=== PATIENT | female | born 1955 | race Caucasian/White ===

== ENCOUNTER 2020-01-27 15:58 | Emergency (ER) | payer MEDICAID ==
[~2020-01-27] VITALS: Ht 152.4 cm; Wt 100.0 kg
[2020-01-27 17:29] LABS: BASOPHILS % 0.3 % (0.0-2.0); HEMATOCRIT. 31.4 % (36.0-48.0); HEMOGLOBIN. 10.5 g/dL (12.0-16.0); MEAN CORPUSCULAR HEMOGLOBIN 27.9 pg (28.0-32.0); MEAN CORPUSCULAR VOLUME 83.4 fL (81.0-99.0); MEAN PLATELET VOLUME 9.1 fl (7.4-10.4); MONOCYTES % 6.1 % (2.0-8.0); NEUTROPHILS % 72.6 % (40.0-76.0); PLATELET 179 x1000/uL (130-400); RED BLOOD CELL COUNT 3.77 mill/uL (4.2-5.4); RED CELL DISTRIBUTION WIDTH 17.9 % (11.6-14.6)
[2020-01-27 17:35] LABS: CHLORIDE 95 mEq/L (98-107)
[2020-01-27 19:45] VITALS: BP 114/55
== END 2020-01-27 20:14 | disposition home or self-care (01) ==
LOC: ER 15:58
DX: R42 Dizziness and giddiness (principal); M25.512 Pain in left shoulder; N18.6 End stage renal disease; E11.9 Type 2 diabetes mellitus without complications; I10 Essential (primary) hypertension
CPT/HCPCS: 36415; 71045; 73030; 80053; 83880; 84484; 85025; 93005; 99285